=== PATIENT | female | born 1980 | race African-American/Black ===

== ENCOUNTER 2018-04-14 04:26 | Inpatient (IN) | payer OTHER ==
[~2018-04-14] VITALS: Ht 157.5 cm; Wt 68.0 kg
--- NOTE | 2018-04-14 04:40 | NUR ---
ED Nurse Note: Pt c/o abdominal pain and vomiting after breakfast yesterday. reports pain 01/01. AO4. NAD. Attached to monitor.
[2018-04-14 04:53] VITALS: BP 127/79
--- NOTE | 2018-04-14 05:00 | NUR ---
ED Nurse Note: Iv access established. Blood and urine collected; sent down to lab.
--- NOTE | 2018-04-14 05:08 | Emergency Room Report ---
History of Present Illness General Chief Complaint: Abdominal Pain Source: Patient (Erik Caba MD) Present Illness HPI This is a 37-year-old female with no past medical history. She presents with chief complaint abdominal pain with nausea vomiting and loose stool. Onset tonight. Pain is sharp and crampy. [place] in nature. 10 out of 10. Vomiting is nonbloody nonbilious. A couple episodes of loose stool but no diarrhea. No fever or chills. Nothing made it better. Trying to eat or drink makes it worse. (Erik Caba MD) Allergies: Coded Allergies: ACETAMINOPHEN (Verified Allergy, Unknown, 04/14/18) OXYCODONE (Verified Allergy, Unknown, 04/14/18) Uncoded Allergies: SULFA MEDS, GLUTEN (Allergy, Unknown, 04/14/18) Patient History Past Medical History: none, see triage record, old chart reviewed Past Surgical History: none Pertinent Family History: none Social History: Denies: smoking Now: No Immunizations: other Reviewed Nursing Documentation: PMH: Agreed; PSxH: Agreed (Erik Caba MD) Nursing Documentation-PMH Past Medical History: No Stated History (Erik Caba MD) Review of Systems Eye: Denies: eye pain, blurred vision ENT: Denies: ear pain, nose congestion, throat swelling Respiratory: Denies: cough, shortness of breath Cardiovascular: Denies: chest pain, palpitations Gastrointestinal: Reports: abdominal pain, nausea, vomiting; Denies: diarrhea Musculoskeletal: Denies: back pain, joint pain Skin: Denies: rash Neurological: Denies: headache, numbness Endocrine: Denies: increased thirst, increased urine Hematologic/Lymphatic: Denies: easy bruising All Other Systems: negative except mentioned in HPI (Erik Caba MD) Physical Exam Vital Signs Date Time Temp Pulse Resp B/P (MAP) Pulse Ox O2 Delivery O2 Flow Rate FiO2 04/14/18 04:30 98.1 73 20 140/75 97 Room Air vitals normal Sp02 EP Interpretation: reviewed, normal General Appearance: well appearing, no apparent distress, alert Head: normocephalic, atraumatic Eyes: bilateral eye PERRL, bilateral eye EOMI ENT: hearing grossly normal, normal pharynx Neck: full range of motion, supple, no meningismus Respiratory: chest non-tender, lungs clear, normal breath sounds Cardiovascular #1: regular rate, rhythm, no murmur Gastrointestinal: no mass, no organomegaly, no bruit, non-distended, tenderness - Mild, diffuse, decreased bowel sounds Musculoskeletal: back normal, gait/station normal, normal range of motion Psychiatric: mood/affect normal Skin: warm/dry (Erik Caba MD) Medical Decision Making Diagnostic Impression: Primary Impression: Abdominal pain Qualified Codes: R10.84 - Generalized abdominal pain Additional Impressions: Nausea & vomiting Qualified Codes: R11.2 - Nausea with vomiting, unspecified Leukocytosis Qualified Codes: D72.829 - Elevated white blood cell count, unspecified ER Course Patient presents with abdominal pain with nausea vomiting and small amount of diarrhea. This most likely a gastroenteritis, viral in etiology. She does have a leukocytosis. This is probably secondary to stress response of vomiting and pain. Could be infectious in nature. Abdominal exam is soft without any evidence of any obstruction. We'll get CT scan. Patient said she has similar symptom in December at an outside hospital. Was told that her white count was very high and that she has infection of the gallbladder. She was admitted for IV antibiotics and the next day was told it wasn't her gallbladder. She was eventually discharge without any clear cause of her high white count. She never got surgery. I will sign this patient out to Dr. Vaughn for final disposition pending CT scan report. Lab Results Impression labs with leukocytosis (Erik Caba MD) ER Course Please refer to the initial note for the presentation and history Patient also reports symptoms started soon after eating brunch yesterday Patient had some mimosas, also brunch including egg and short ribs Soon after became nauseated Has had several episodes of increased epigastric cramping sharp pain Associated with vomiting as well She had one episode of loose stool after that During the current care she reports feeling significantly improved however has intermittent waves of discomfort and still feels increasing nauseated Patient's white blood cell count is significantly elevated at 20,000 CT imaging does not reveal any acute pathology to explain the white count Patient reports similar episode in 2016 With extensive follow-up at [facility] and multiple imaging and workup without any obvious source This presentation does appear to have close correlation with colitis, gastroenteritis type pathology nevertheless given the Decreased oral intake Continued nausea, pain and elevated white blood cell count patient is admitted for further inpatient care Labs Test 04/14/18 04:40 04/14/18 05:05 Urine Color Pale yellow Urine Appearance Clear Urine pH 8 (4.5-8.0) Urine Specific [place] 1.010 (1.005-1.035) Urine Protein 2+ (NEGATIVE) Urine Glucose (UA) Negative (NEGATIVE) Urine Ketones 3+ (NEGATIVE) Urine Blood Negative (NEGATIVE) Urine Nitrite Negative (NEGATIVE) Urine Bilirubin Negative (NEGATIVE) Urine Urobilinogen Normal MG/DL (0.0-1.0) Urine Leukocyte Esterase Negative (NEGATIVE) Urine RBC 0 /HPF (0 - 2) Urine WBC 0-2 /HPF (0 - 2) Urine Squamous Epithelial Cells Many /LPF (NONE/OCC) Urine Bacteria Few /HPF (NONE) Urine HCG, Qualitative Negative (NEGATIVE) White Blood Count 20.6 K/UL (4.8-10.8) Red Blood Count 5.49 M/UL (4.20-5.40) Hemoglobin 12.2 G/DL (12.0-16.0) Hematocrit 38.6 % (37.0-47.0) Mean Corpuscular Volume 70 FL (80-99) Mean Corpuscular Hemoglobin 22.2 PG (27.0-31.0) Mean Corpuscular Hemoglobin Concent 31.5 G/DL (32.0-36.0) Red Cell Distribution Width 14.0 % (11.6-14.8) Platelet Count 332 K/UL (150-450) Mean Platelet Volume 6.7 FL (6.5-10.1) Neutrophils (%) (Auto) % (45.0-75.0) Lymphocytes (%) (Auto) % (20.0-45.0) Monocytes (%) (Auto) % (1.0-10.0) Eosinophils (%) (Auto) % (0.0-3.0) Basophils (%) (Auto) % (0.0-2.0) Sodium Level 139 MMOL/L (136-145) Potassium Level 3.8 MMOL/L (3.5-5.1) Chloride Level 104 MMOL/L (98-107) Carbon Dioxide Level 22 MMOL/L (21-32) Anion Gap 13 mmol/L (5-15) Blood Urea Nitrogen 10 mg/dL (7-18) Creatinine 1.0 MG/DL (0.55-1.30) Estimat Glomerular Filtration Rate > 60 mL/min (>60) Glucose Level 154 MG/DL (74-106) Calcium Level 9.3 MG/DL (8.5-10.1) Total Bilirubin 0.2 MG/DL (0.2-1.0) Aspartate Amino Transf (AST/SGOT) 17 U/L (15-37) Alanine Aminotransferase (ALT/SGPT) 22 U/L (12-78) Alkaline Phosphatase 42 U/L (46-116) Total Protein 7.9 G/DL (6.4-8.2) Albumin 4.0 G/DL (3.4-5.0) Globulin 3.9 g/dL Albumin/Globulin Ratio 1.0 (1.0-2.7) Lipase 85 U/L (73-393) (Gina Vaughn DO) CT/MRI/US Diagnostic Results CT/MRI/US Diagnostic Results : Impression CT abdomen pelvis: Refer to report for full specific mild colitis cannot be excluded appendix appears normal uterus is enlarged and heterogeneous (Gina Vaughn DO) Last Vital Signs Date Time Temp Pulse Resp B/P (MAP) Pulse Ox O2 Delivery O2 Flow Rate FiO2 04/14/18 04:53 98.1 63 15 127/79 100 Room Air Status: improved (Erik Caba MD) Status: improved (Gina Vaughn DO) Disposition: ADMITTED INPATIENT Condition: Serious Referrals: NOT CHOSEN IPA/,REFERRING (PCP) Erik Caba MD Apr 14, 2018 05:08 Gina Vaguhn DO Apr 14, 2018 07:34
[2018-04-14] MEDS ORDERED: Morphine Sulfate 4mg/ml Inj (IV USE ONLY) IVP ONE ×2 (05:15→06:30)
[2018-04-14 05:30] LABS: HEMATOCRIT 38.6 % (37.0-47.0); HEMOGLOBIN 12.2 G/DL (12.0-16.0); MEAN CORPUSCULAR VOLUME 70 FL (80-99); PLATELET COUNT 332 K/UL (150-450); RED BLOOD COUNT 5.49 M/UL (4.20-5.40); WHITE BLOOD COUNT 20.6 K/UL (4.8-10.8)
[2018-04-14 05:32] LABS: APPEARANCE,URINE CLEAR; BILIRUBIN, URINE NEGATIVE (NEGATIVE); COLOR,URINE PALE YELLOW; GLUCOSE, URINE (UA) NEGATIVE (NEGATIVE); KETONES,URINE 3+ (NEGATIVE); LEUKOCYTE ESTERASE ,URINE NEGATIVE (NEGATIVE); NITRITE,URINE NEGATIVE (NEGATIVE); PH,URINE 8 (4.5-8.0); PROTEIN,URINE 2+ (NEGATIVE); UROBILINOGEN,URINE NORMAL MG/DL (0.0-1.0)
[2018-04-14 05:40] LABS: ANION GAP 13 mmol/L (5-15); BLOOD UREA NITROGEN 10 mg/dL (7-18); CALCIUM 9.3 MG/DL (8.5-10.1); CARBON DIOXIDE 22 MMOL/L (21-32); CHLORIDE 104 MMOL/L (98-107); POTASSIUM 3.8 MMOL/L (3.5-5.1); SODIUM 139 MMOL/L (136-145)
[2018-04-14 05:44] LABS: ALANINE AMINOTRANSFERASE 22 U/L (12-78); ALKALINE PHOSPHATASE 42 U/L (46-116); ASPARTATE AMINO TRANSFERASE 17 U/L (15-37); BILIRUBIN,TOTAL 0.2 MG/DL (0.2-1.0)
[2018-04-14] MEDS ORDERED: Ketorolac 30mg Inj IV ONE (05:45)
--- NOTE | 2018-04-14 06:00 | NUR ---
ED Nurse Note: pt down to imaging
--- NOTE | 2018-04-14 06:09 | NUR ---
ED Nurse Note: pt back from imaging
[2018-04-14 06:48] VITALS: BP 108/60
--- NOTE | 2018-04-14 07:05 | NUR ---
HAND-OFF: Report given to MOIRA Kaur. Patient sleeping in stable condition. Family member at bedside. Plan of care endorsed.
--- NOTE | 2018-04-14 07:10 | NUR ---
ED Nurse Note: Received report from Harish Sierra RN. Pt is asleep in bed comfortably. No acute distress noted. Awaiting for a bed.
[2018-04-14] MEDS ORDERED: DiphenhydrAMINE 50mg/ml Inj IVP ONE (07:30)
[2018-04-14] MEDS ORDERED: birth control pill (07:45)
--- NOTE | 2018-04-14 08:00 | NUR ---
ED Nurse Note: Gave telephone report to MOIRA Kyle. Bed unavailable and waiting for packet from registration. Will continue to monitor.
--- NOTE | 2018-04-14 08:19 | NUR ---
NURSE NOTES: Received telephone report from Keiko RN, awaiting patient to be transferred up from ED.
--- NOTE | 2018-04-14 08:35 | NUR ---
ED Nurse Note: Transferred pt up to Med surg unit. No acute distress noted. Left ER w/ all belongings. Went over belongings list with MOIRA Kyle.
[2018-04-14 09:00] VITALS: BP 107/69
--- NOTE | 2018-04-14 09:46 | Diagnostic Imaging Report ---
Indication: Abdominal pain Technique: CT of the abdomen and pelvis utilizing automated exposure control with intravenous contrast. Venous scanning performed. Axial, sagittal and coronal reformats presented. CT dose: Total DLP 449.7 mGycm; CTDI vol 9.77 mGy Comparison: None Findings: Minimal dependent atelectatic changes noted in the posterior lower lobes bilaterally. There is no focal airspace consolidation, pleural effusion or pneumothorax. Heart size appears within normal limits. No appreciable pericardial effusion. Bilateral breast implants are partially visualized; imaged portions are unremarkable. Hepatic contour is smooth. No focal hepatic mass lesion noted on this single phase exam. Hepatic veins and portal veins are patent. Gallbladder is unremarkable, without CT evident gallstones or pericholecystic inflammatory changes. No biliary ductal dilatation. Spleen, adrenal glands and pancreas grossly unremarkable. Kidneys enhance symmetrically. No urinary tract stone or hydronephrosis bilaterally. No perinephric stranding. Bladder is unremarkable. Uterus is enlarged and heterogeneous with a slightly lobulated contour. Approximately 8 mm calcification is noted in the right adnexal region, of uncertain clinical significance or etiology. Possibly calcified lymph node. Evaluation of the gastrointestinal structures is limited due to lack of enteric contrast and overall paucity of intra-abdominal fat. There is no free intraperitoneal air. There is a tiny fat-containing umbilical hernia. A umbilical piercing is noted. There is no free fluid. There is no evidence of bowel obstruction. Appendix is not definitively identified however there are no definite focal inflammatory changes in the right lower quadrant. There is apparent colonic wall thickening which is likely related to underdistention. The possibility of a mild colitis should be excluded clinically. Abdominal aorta is normal in caliber. No pathologically enlarged lymphadenopathy. No acute osseous abnormality. IMPRESSION: Note that evaluation of the gastrointestinal structures is limited due to lack of enteric contrast and overall paucity of intra-abdominal fat. Within these limitations: * Apparent thickening of the colon likely related to underdistention. Possibility of a mild colitis should be excluded clinically. * Appendix not definitively identified however there are no secondary signs in the right lower quadrant to suggest acute appendicitis. * Enlarged and very heterogeneous uterus with a lobular contour. Findings may be on the basis of myomatous change/fibroids. Correlate clinically. Confirmation with pelvic ultrasound recommended on a routine basis. Additional incidental findings as above. This corresponds with the statrad preliminary report.. The CT scanner at [facility] is accredited by the [employer] and the scans are performed using protocols designed to limit radiation exposure to as low as reasonably achievable to attain images of sufficient resolution adequate for diagnostic evaluation.
[2018-04-14] MEDS: Pantoprazole Inj IVP SCH (10:14)
[2018-04-14 12:00] VITALS: BP 116/70
[2018-04-14] MEDS: Levofloxacin 500mg tab ORAL SCH (15:18)
[2018-04-14 16:00] VITALS: BP 119/78
[2018-04-14 17:30] LABS: BASOPHILS % (AUTO) 1.2 % (0.0-2.0); EOSINOPHILS % (AUTO) 0.1 % (0.0-3.0); HEMATOCRIT 33.3 % (37.0-47.0); HEMOGLOBIN 10.4 G/DL (12.0-16.0); LYMPHOCYTES % (AUTO) 24.6 % (20.0-45.0); MEAN CORPUSCULAR VOLUME 71 FL (80-99); MONOCYTES % (AUTO) 7.3 % (1.0-10.0); NEUTROPHILS % (AUTO) 66.8 % (45.0-75.0); PLATELET COUNT 275 K/UL (150-450); RED BLOOD COUNT 4.68 M/UL (4.20-5.40)
[2018-04-14 17:39] LABS: ALANINE AMINOTRANSFERASE 18 U/L (12-78); ALBUMIN 3.1 G/DL (3.4-5.0); ALBUMIN/GLOBULIN RATIO 0.9 (1.0-2.7); ALKALINE PHOSPHATASE 34 U/L (46-116); ANION GAP 9 mmol/L (5-15); ASPARTATE AMINO TRANSFERASE 14 U/L (15-37); BILIRUBIN,TOTAL 0.3 MG/DL (0.2-1.0); BLOOD UREA NITROGEN 7 mg/dL (7-18); CALCIUM 8.2 MG/DL (8.5-10.1); CARBON DIOXIDE 23 MMOL/L (21-32); CHLORIDE 105 MMOL/L (98-107); CREATININE 0.8 MG/DL (0.55-1.30); POTASSIUM 3.7 MMOL/L (3.5-5.1); SODIUM 137 MMOL/L (136-145)
--- NOTE | 2018-04-14 19:19 | NUR ---
HAND-OFF: Report given to Andreea PIZARRO .
--- NOTE | 2018-04-14 19:22 | NUR ---
HAND-OFF: Report given to MOIRA Doran..
--- NOTE | 2018-04-14 19:30 | NUR ---
NURSE NOTES: Received patient in bed, awake , alert, oriented, ambulatory, no acute distress noted or reported. Bed is in low position, alarm is on, and bed is locked. Call light is within reach. Will continue to monitor for safety and comfort.
[2018-04-14 20:00] VITALS: BP 124/84
--- NOTE | 2018-04-14 20:38 | NUR ---
CASE MANAGEMENT: REVIEW / BIBA FROM HOME CC: ABD PAIN 01/01 . VOMITING . LOOSE STOOL SI: SEPSIS T 97.5 HR 94 RR 19 BP 116/70 SAT 97% ROOM AIR WBC 20.6 IS: PEPCID IV X1 NS IVF BOLUS X1 MORPHINE 4MG IV X1 TORADOL 30MG IV X1 ZOFRAN IV X1 BENADRYL IV X1 PATIENT ADMITTED TO MED/SURG UNIT 04/14/2018 DCP: PATIENT IS FROM HOME
--- NOTE | 2018-04-14 21:19 | History & Physical ---
History and Physical History & Physicial 37-year-old female with essentially no prior medical problems. The patient presents with abdominal pain nausea and vomiting and loose stool. Patient notes abdominal pain to be sharp and crampy. The patient with no evidence of hematochezia or hematemesis. No fevers or chills. Past medical history Essentially negative Medications and allergies reviewed and reconciled Review of systems as above Physical examination Well-developed well-nourished female in no acute distress Vital signs 97 7, 76, 116/70, 18, 99% HEENT overall negative except for Lungs are fairly clear and symmetric Cardiac exam normal S1-S2 regular rate and rhythm Abdomen mildly tender, no distention, normal bowel sounds Extremities no cyanosis clubbing or edema Neurologically grossly nonfocal Labs Test 04/14/18 04:40 04/14/18 05:05 04/14/18 17:00 Urine Color Pale yellow Urine Appearance Clear Urine pH 8 (4.5-8.0) Urine Specific [place] 1.010 (1.005-1.035) Urine Protein 2+ (NEGATIVE) Urine Glucose (UA) Negative (NEGATIVE) Urine Ketones 3+ (NEGATIVE) Urine Blood Negative (NEGATIVE) Urine Nitrite Negative (NEGATIVE) Urine Bilirubin Negative (NEGATIVE) Urine Urobilinogen Normal MG/DL (0.0-1.0) Urine Leukocyte Esterase Negative (NEGATIVE) Urine RBC 0 /HPF (0 - 2) Urine WBC 0-2 /HPF (0 - 2) Urine Squamous Epithelial Cells Many /LPF (NONE/OCC) Urine Bacteria Few /HPF (NONE) Urine HCG, Qualitative Negative (NEGATIVE) White Blood Count 20.6 K/UL (4.8-10.8) 12.0 K/UL (4.8-10.8) Red Blood Count 5.49 M/UL (4.20-5.40) 4.68 M/UL (4.20-5.40) Hemoglobin 12.2 G/DL (12.0-16.0) 10.4 G/DL (12.0-16.0) Hematocrit 38.6 % (37.0-47.0) 33.3 % (37.0-47.0) Mean Corpuscular Volume 70 FL (80-99) 71 FL (80-99) Mean Corpuscular Hemoglobin 22.2 PG (27.0-31.0) 22.3 PG (27.0-31.0) Mean Corpuscular Hemoglobin Concent 31.5 G/DL (32.0-36.0) 31.4 G/DL (32.0-36.0) Red Cell Distribution Width 14.0 % (11.6-14.8) 14.0 % (11.6-14.8) Platelet Count 332 K/UL (150-450) 275 K/UL (150-450) Mean Platelet Volume 6.7 FL (6.5-10.1) 6.8 FL (6.5-10.1) Neutrophils (%) (Auto) % (45.0-75.0) 66.8 % (45.0-75.0) Lymphocytes (%) (Auto) % (20.0-45.0) 24.6 % (20.0-45.0) Monocytes (%) (Auto) % (1.0-10.0) 7.3 % (1.0-10.0) Eosinophils (%) (Auto) % (0.0-3.0) 0.1 % (0.0-3.0) Basophils (%) (Auto) % (0.0-2.0) 1.2 % (0.0-2.0) Sodium Level 139 MMOL/L (136-145) 137 MMOL/L (136-145) Potassium Level 3.8 MMOL/L (3.5-5.1) 3.7 MMOL/L (3.5-5.1) Chloride Level 104 MMOL/L (98-107) 105 MMOL/L (98-107) Carbon Dioxide Level 22 MMOL/L (21-32) 23 MMOL/L (21-32) Anion Gap 13 mmol/L (5-15) 9 mmol/L (5-15) Blood Urea Nitrogen 10 mg/dL (7-18) 7 mg/dL (7-18) Creatinine 1.0 MG/DL (0.55-1.30) 0.8 MG/DL (0.55-1.30) Estimat Glomerular Filtration Rate > 60 mL/min (>60) > 60 mL/min (>60) Glucose Level 154 MG/DL (74-106) 102 MG/DL (74-106) Calcium Level 9.3 MG/DL (8.5-10.1) 8.2 MG/DL (8.5-10.1) Total Bilirubin 0.2 MG/DL (0.2-1.0) 0.3 MG/DL (0.2-1.0) Aspartate Amino Transf (AST/SGOT) 17 U/L (15-37) 14 U/L (15-37) Alanine Aminotransferase (ALT/SGPT) 22 U/L (12-78) 18 U/L (12-78) Alkaline Phosphatase 42 U/L (46-116) 34 U/L (46-116) Total Protein 7.9 G/DL (6.4-8.2) 6.4 G/DL (6.4-8.2) Albumin 4.0 G/DL (3.4-5.0) 3.1 G/DL (3.4-5.0) Globulin 3.9 g/dL 3.3 g/dL Albumin/Globulin Ratio 1.0 (1.0-2.7) 0.9 (1.0-2.7) Lipase 85 U/L (73-393) Impression Leukocytosis, possible sepsis Anemia Mild protein calorie malnutrition Abdominal pain Possible mild colitis Possible fibroid uterus Plan IV hydration Antiemetics ID evaluation Flagyl empirically Clear liquid diet and advance as tolerated Discharge when patient improved and stable Afshin Villa MD Apr 14, 2018 21:19
[2018-04-15] VITALS: BP 114/71
[2018-04-15 04:00] VITALS: BP 111/66
--- NOTE | 2018-04-15 07:21 | NUR ---
HAND-OFF: Report given to Sylvester PIZARRO.
[2018-04-15 07:22] LABS: BASOPHILS % (AUTO) 0.9 % (0.0-2.0); HEMATOCRIT 31.6 % (37.0-47.0); HEMOGLOBIN 10.2 G/DL (12.0-16.0); LYMPHOCYTES % (AUTO) 43.2 % (20.0-45.0); MEAN CORPUSCULAR VOLUME 70 FL (80-99); MONOCYTES % (AUTO) 6.5 % (1.0-10.0); NEUTROPHILS % (AUTO) 48.3 % (45.0-75.0); PLATELET COUNT 259 K/UL (150-450); RED BLOOD COUNT 4.53 M/UL (4.20-5.40); RED CELL DISTRIBUTION WIDTH 14.4 % (11.6-14.8); WHITE BLOOD COUNT 8.9 K/UL (4.8-10.8)
[2018-04-15 07:27] LABS: ALANINE AMINOTRANSFERASE 17 U/L (12-78); ALBUMIN 2.8 G/DL (3.4-5.0); ALKALINE PHOSPHATASE 29 U/L (46-116); ANION GAP 7 mmol/L (5-15); ASPARTATE AMINO TRANSFERASE 13 U/L (15-37); BILIRUBIN,TOTAL 0.3 MG/DL (0.2-1.0); BLOOD UREA NITROGEN 7 mg/dL (7-18); CALCIUM 7.9 MG/DL (8.5-10.1); CARBON DIOXIDE 26 MMOL/L (21-32); CHLORIDE 108 MMOL/L (98-107); POTASSIUM 3.9 MMOL/L (3.5-5.1); SODIUM 141 MMOL/L (136-145)
--- NOTE | 2018-04-15 07:27 | NUR ---
NURSE NOTES: Pt received from MOIRA Doran alert and oriented x4 with no complaints or s/s of pain, SOB, or n/v. IV site asymptomatic and patent. Bed in lowest position, call light and belongings within reach.
--- NOTE | 2018-04-15 07:58 | General Progress Note ---
Assessment/Plan Assessment/Plan Impression Leukocytosis, resolved Anemia Mild protein calorie malnutrition Abdominal pain Possible mild colitis Possible fibroid uterus Plan IV hydration Antiemetics maintain clears probiotics diet to be advance as tolerated Discharge home and follow up with gi patient aware return to ER if symptoms recur Subjective Allergies: Coded Allergies: ACETAMINOPHEN (Verified Allergy, Unknown, 04/14/18) OXYCODONE (Verified Allergy, Unknown, 04/14/18) Uncoded Allergies: SULFA MEDS, GLUTEN (Allergy, Unknown, 04/14/18) Subjective improved overnight events reviewed Objective Last 24 Hour Vital Signs Date Time Temp Pulse Resp B/P (MAP) Pulse Ox O2 Delivery O2 Flow Rate FiO2 04/15/18 04:00 98.2 78 18 111/66 (81) 04/15/18 00:00 99.3 78 18 114/71 (85) 99 04/14/18 21:00 Room Air 04/14/18 20:00 99.7 87 18 124/84 (97) 04/14/18 16:00 98.8 74 18 119/78 (92) 97 04/14/18 12:00 97.7 76 18 116/70 (85) 99 04/14/18 10:45 Room Air 04/14/18 09:00 98.2 87 18 107/69 (82) 99 04/14/18 08:33 97.5 94 19 112/70 97 Room Air Intake and Output 04/14/18 04/15/18 19:00 07:00 Intake Total 1520 ml Balance 1520 ml Intake Oral 320 ml IV Total 1200 ml # Voids 3 Laboratory Tests 04/14/18 17:00: White Blood Count 12.0H, Red Blood Count 4.68, Hemoglobin 10.4L, Hematocrit 33.3L, Mean Corpuscular Volume 71L, Mean Corpuscular Hemoglobin 22.3L, Mean Corpuscular Hemoglobin Concent 31.4L, Red Cell Distribution Width 14.0, Platelet Count 275, Mean Platelet Volume 6.8, Neutrophils (%) (Auto) 66.8, Lymphocytes (%) (Auto) 24.6, Monocytes (%) (Auto) 7.3, Eosinophils (%) (Auto) 0.1, Basophils (%) (Auto) 1.2, Sodium Level 137, Potassium Level 3.7, Chloride Level 105, Carbon Dioxide Level 23, Anion Gap 9, Blood Urea Nitrogen 7, Creatinine 0.8, Estimat Glomerular Filtration Rate > 60, Glucose Level 102, Calcium Level 8.2L, Total Bilirubin 0.3, Aspartate Amino Transf (AST/SGOT) 14L, Alanine Aminotransferase (ALT/SGPT) 18, Alkaline Phosphatase 34L, Total Protein 6.4, Albumin 3.1L, Globulin 3.3, Albumin/Globulin Ratio 0.9L 04/15/18 06:37: White Blood Count 8.9, Red Blood Count 4.53, Hemoglobin 10.2L, Hematocrit 31.6L , Mean Corpuscular Volume 70L, Mean Corpuscular Hemoglobin 22.4L, Mean Corpuscular Hemoglobin Concent 32.2, Red Cell Distribution Width 14.4, Platelet Count 259, Mean Platelet Volume 7.3, Neutrophils (%) (Auto) 48.3, Lymphocytes (% ) (Auto) 43.2, Monocytes (%) (Auto) 6.5, Eosinophils (%) (Auto) 1.0, Basophils ( %) (Auto) 0.9, Sodium Level 141, Potassium Level 3.9, Chloride Level 108H, Carbon Dioxide Level 26, Anion Gap 7, Blood Urea Nitrogen 7, Creatinine 1.0, Estimat Glomerular Filtration Rate > 60, Glucose Level 101, Calcium Level 7.9L, Total Bilirubin 0.3, Aspartate Amino Transf (AST/SGOT) 13L, Alanine Aminotransferase (ALT/SGPT) 17, Alkaline Phosphatase 29L, Total Protein 5.6L, Albumin 2.8L, Globulin 2.8, Albumin/Globulin Ratio 1.0 Height (Feet): 5 Height (Inches): 2.00 Weight (Pounds): 150 Objective WDWN NAD clear breath sounds bilaterally without rhonchi or wheeze [id number] without MRG NABS nontender no HSM no CCE nonfocal Afshin Villa MD Apr 15, 2018 07:57
[2018-04-15 08:00] VITALS: BP 114/74
--- NOTE | 2018-04-15 08:14 | Consultation ---
DATE OF CONSULTATION: 04/14/2018 INFECTIOUS DISEASE CONSULTATION This consult is for coverage of Dr. Kinsey. CONSULTING PHYSICIAN: Dennis Alcantar M.D. PRIMARY ATTENDING PHYSICIAN: Afshin Villa M.D. REASON FOR CONSULT: Gastroenteritis. HISTORY OF PRESENT ILLNESS: The patient is a 37-year-old female, admitted today, started to have nausea, vomiting three hours after having brunch in a restaurant. She consumed some alcohol with the food, had severe abdominal pain 10/10 at the time of admission, nausea and vomiting, and to a lesser amount diarrhea. Had leukocytosis of 20,000. The patient has a history of similar problem in 2017. The patient also had history of colonoscopy and an esophagogastroduodenoscopy that according to her was negative. PAST MEDICAL HISTORY: History of fibroids. ALLERGIES: Admitted to Tylenol, oxycodone, and gluten. MEDICATIONS: Getting Flagyl, Zofran, sodium chloride, Tylenol, and Protonix. SOCIAL HISTORY: Single, has no children. Nonsmoker. Occasional drinking. Uses marijuana. REVIEW OF SYSTEMS: Today, the patient is feeling much better. Pain is less and there is no nausea or vomiting. No coughing. No shortness of breath. No problem passing urine. PHYSICAL EXAMINATION: VITAL SIGNS: Temperature 97.7, pulse 56 , blood pressure 116/70. GENERAL APPEARANCE: No acute distress. Well developed. HEAD AND NECK: [employer] conjunctivae. No oral lesion. HEART: S1, S2, regular. LUNGS: Clear. ABDOMEN: Soft and nontender. EXTREMITIES: Has no edema. NEUROLOGIC: Awake, alert, oriented. LABORATORY AND DIAGNOSTIC DATA: Sodium 139, potassium 3.3, chloride 104, bicarbonate 22, BUN 10, creatinine 1, and glucose 154. WBC 20.6, hemoglobin 12.9, hematocrit 38.6, and platelets 332. UA was negative. CT scan of the abdomen and pelvis was done without contrast, which showed thickening of colon likely under distention, possibility of mild colitis, enlarged uterus likely secondary to fibroids. IMPRESSION: 1. Gastroenteritis. 2. Colitis may be infectious. 3. Leukocytosis. 4. History of fibroids. RECOMMENDATIONS: We will continue with Flagyl. We will add Levaquin. We will follow up the laboratories. At the end of my exam, I thank, Dr. Villa, for involving me in the care of this patient. Dennis Alcantar M.D. DR: EMILY JOB#: [id number] CC: JOSUE
[2018-04-15] MEDS: Levofloxacin 500mg tab ORAL SCH (09:02)
[2018-04-15] MEDS: Pantoprazole Inj IVP SCH (09:02)
--- NOTE | 2018-04-15 09:52 | Infectious Diseases Prog Note ---
Assessment/Plan Assessment/Plan antibiotics : levoquin, flagyl A 1. ? gastroenteritis resolving 2. leucocytosis resolved 3. uterine fibroids P 1. d/c levoquin, flagyl 2. okay for discharge off antibiotics from ID perspective Subjective Constitutional: Denies: fever, chills Respiratory: Denies: shortness of breath, dry cough Gastrointestinal/Abdominal: Denies: nausea, vomiting, diarrhea Musculoskeletal: Denies: pain Allergies: Coded Allergies: ACETAMINOPHEN (Verified Allergy, Unknown, 04/14/18) OXYCODONE (Verified Allergy, Unknown, 04/14/18) Uncoded Allergies: SULFA MEDS, GLUTEN (Allergy, Unknown, 04/14/18) Objective Vital Signs Last 24 Hour Vital Signs Date Time Temp Pulse Resp B/P (MAP) Pulse Ox O2 Delivery O2 Flow Rate FiO2 04/15/18 04:00 98.2 78 18 111/66 (81) 04/15/18 00:00 99.3 78 18 114/71 (85) 99 04/14/18 21:00 Room Air 04/14/18 20:00 99.7 87 18 124/84 (97) 04/14/18 16:00 98.8 74 18 119/78 (92) 97 04/14/18 12:00 97.7 76 18 116/70 (85) 99 04/14/18 10:45 Room Air Height (Feet): 5 Height (Inches): 2.00 Weight (Pounds): 150 Respiratory/Chest: lungs clear Cardiovascular: normal rate, regular rhythm, no gallop/murmur Abdomen: soft, non tender Extremities: no edema Laboratory Tests Test 04/14/18 17:00 04/15/18 06:37 White Blood Count 12.0 K/UL (4.8-10.8) H 8.9 K/UL (4.8-10.8) Red Blood Count 4.68 M/UL (4.20-5.40) 4.53 M/UL (4.20-5.40) Hemoglobin 10.4 G/DL (12.0-16.0) L 10.2 G/DL (12.0-16.0) L Hematocrit 33.3 % (37.0-47.0) L 31.6 % (37.0-47.0) L Mean Corpuscular Volume 71 FL (80-99) L 70 FL (80-99) L Mean Corpuscular Hemoglobin 22.3 PG (27.0-31.0) L 22.4 PG (27.0-31.0) L Mean Corpuscular Hemoglobin Concent 31.4 G/DL (32.0-36.0) L 32.2 G/DL (32.0-36.0) Red Cell Distribution Width 14.0 % (11.6-14.8) 14.4 % (11.6-14.8) Platelet Count 275 K/UL (150-450) 259 K/UL (150-450) Mean Platelet Volume 6.8 FL (6.5-10.1) 7.3 FL (6.5-10.1) Neutrophils (%) (Auto) 66.8 % (45.0-75.0) 48.3 % (45.0-75.0) Lymphocytes (%) (Auto) 24.6 % (20.0-45.0) 43.2 % (20.0-45.0) Monocytes (%) (Auto) 7.3 % (1.0-10.0) 6.5 % (1.0-10.0) Eosinophils (%) (Auto) 0.1 % (0.0-3.0) 1.0 % (0.0-3.0) Basophils (%) (Auto) 1.2 % (0.0-2.0) 0.9 % (0.0-2.0) Sodium Level 137 MMOL/L (136-145) 141 MMOL/L (136-145) Potassium Level 3.7 MMOL/L (3.5-5.1) 3.9 MMOL/L (3.5-5.1) Chloride Level 105 MMOL/L (98-107) 108 MMOL/L (98-107) H Carbon Dioxide Level 23 MMOL/L (21-32) 26 MMOL/L (21-32) Anion Gap 9 mmol/L (5-15) 7 mmol/L (5-15) Blood Urea Nitrogen 7 mg/dL (7-18) 7 mg/dL (7-18) Creatinine 0.8 MG/DL (0.55-1.30) 1.0 MG/DL (0.55-1.30) Estimat Glomerular Filtration Rate > 60 mL/min (>60) > 60 mL/min (>60) Glucose Level 102 MG/DL (74-106) 101 MG/DL (74-106) Calcium Level 8.2 MG/DL (8.5-10.1) L 7.9 MG/DL (8.5-10.1) L Total Bilirubin 0.3 MG/DL (0.2-1.0) 0.3 MG/DL (0.2-1.0) Aspartate Amino Transf (AST/SGOT) 14 U/L (15-37) L 13 U/L (15-37) L Alanine Aminotransferase (ALT/SGPT) 18 U/L (12-78) 17 U/L (12-78) Alkaline Phosphatase 34 U/L (46-116) L 29 U/L (46-116) L Total Protein 6.4 G/DL (6.4-8.2) 5.6 G/DL (6.4-8.2) L Albumin 3.1 G/DL (3.4-5.0) L 2.8 G/DL (3.4-5.0) L Globulin 3.3 g/dL 2.8 g/dL Albumin/Globulin Ratio 0.9 (1.0-2.7) L 1.0 (1.0-2.7) Current Medications Medications (Trade) Dose Ordered Sig/Shola Route PRN Reason Start Time Stop Time Status Last Admin Dose Admin Acetaminophen (Tylenol) 650 mg Q4H PRN ORAL Mild Pain/Temp > 100.5 04/14/18 09:00 05/14/18 08:59 Barium Sulfate (Readi-Cat 2) 450 ml NOW PRN ORAL Radiology Procedure 04/14/18 05:45 04/16/18 05:41 Levofloxacin (Levaquin) 500 mg DAILY ORAL 04/14/18 14:38 04/21/18 14:37 04/15/18 09:02 Metronidazole 100 ml @ 100 mls/hr Q8H IVPB 04/14/18 10:00 04/21/18 09:59 04/15/18 09:02 Ondansetron HCl (Zofran) 4 mg Q6H PRN IVP Nausea & Vomiting 04/14/18 09:00 05/14/18 08:59 Pantoprazole (Protonix) 40 mg DAILY IVP 04/14/18 09:00 05/14/18 08:59 04/15/18 09:02 Sodium Chloride 1,000 ml @ 100 mls/hr Q10H IV 04/14/18 09:00 05/14/18 08:59 04/14/18 23:19 Vaishali Kinsey MD Apr 15, 2018 09:52
--- NOTE | 2018-04-15 11:00 | NUR ---
NURSE NOTES: Pt discharged home with home meds. Per Dr. Kinsey, pt does not need to continue any antibiotics upon discharge. Belongings with patient upon discharge, signed by patient and RN. No home meds brought by patient from pharmacy. No wounds upon discharge. IV site d/troy and patient wristband removed as per protocol. Pt picked up by boyfriend in private vehicle, discharged in stable condition.
--- NOTE | 2018-04-15 13:32 | NUR ---
*-* INSURANCE *-* [employer] NCM:DEQUAN P;[phone] F:[phone] REF#[phone]
--- NOTE | 2018-04-16 11:52 | Discharge Summary ---
Discharge Summary Discharge Summary _ DATE OF ADMISSION: 04/14/2018 DATE OF DISCHARGE: 04/15/2018 DISCHARGED BY: Dr. Villa REASON FOR ADMISSION: 37 years old female without significant past medical history, presented with chief complaint of abdominal pain , nausea, nonbloody nonbilious vomiting and loose stools for 1 day. Pain reported to be sharp and crampy , 10 out of 10 on a scale 1-10. Two episodes of loose stools, but no diarrhea. Patient denied fever or chills. Upon evaluation vital signs revealed no fever , blood pressure 140/75. CT of the abdomen and pelvis revealed apparent thickening of the colon, likely related to underdistention. Possible mild colitis . No evidence to suggest acute appendicitis. Very enlarged and heterogeneous uterus with lobular contour, probably on the basis of myomatous changes/ fibroids. Laboratory workup revealed leukocytosis WBC 20.6, stable hemoglobin and hematocrit. Stable electrolytes and renal parameters. Stable LFT and lipase. Urinalysis revealed +2 protein, no evidence of urinary tract infection. Urine test was negative. Patient was admitted for further management. CONSULTANTS: ID specialist Dr. Kinsey HOSPITAL COURSE: Patient admitted to medical surgical floor and started on IV hydration and empiric antibiotic. ID consult was requested. Patient initially kept n.p.o. and then started on clear liquid diet as tolerated. Pain management was addressed. Symptomatic treatment with antiemetic provided as needed. Patient probably had gastroenteritis which was resolving, and patient was clinically improving. Leukocytosis resolved, no fevers. Antibiotics were discontinued as per ID recommendations. Patient was able to tolerate diet, no further nausea vomiting, no loose stools. Leukocytosis resolved, no fever. Patient was stable for discharge home off antibiotic. Recommended outpatient follow-up with GI specialist. Patient will educated to return to emergency department if symptoms recur. Due to rapid and unexpected improvement in patient condition, patient was discharged in 1 day. FINAL DIAGNOSES: Acute gastroenteritis - resolving Possible mild colitis Leukocytosis - resolved Abdominal pain likely due to acute gastroenteritis -resolved Probably fibroid uterus Mild protein calorie malnutrition Anemia DISCHARGE MEDICATIONS: See Medication Reconciliation list. DISCHARGE INSTRUCTIONS: Patient was discharged home. Follow up with primary care provider in one week. I have been assigned to dictate discharge summary for this account. I was not involved in the patient's management. Paige Gonzalez NP Apr 16, 2018 11:52
== END 2018-04-15 11:00 | disposition home or self-care (01) | DRG 392 ==
LOC: EMR 05:03 → 4E 06:50 → EDBEDREQ 08:00
DX: K52.9 Noninfective gastroenteritis and colitis, unspecified (principal); E44.1 Mild protein-calorie malnutrition; D25.9 Leiomyoma of uterus, unspecified; D64.9 Anemia, unspecified; Z88.6 Allergy status to analgesic agent
CPT/HCPCS: 36415; 74177; 80053; 81003; 81025; 83690; 85025; 96361; 96374; 96375; 96376; 99285; J2405